=== PATIENT | male | born 1995 | race African-American/Black ===

== ENCOUNTER 2021-03-24 19:33 | Inpatient (IN) | payer OTHER ==
[~2021-03-24] VITALS: Ht 185.4 cm; Wt 74.8 kg
--- NOTE | 2021-03-24 20:09 | NUR ---
SE RECIBE PACIENTE EN AMBULANCIA, PARAMEDICOS REFIERE LO ENCONTRARON INCONCIENTE EN LA PLAYA Y OFRECIERON PROMEROS AUXILIOS Y EL MISMO RESPONDIO. SE COLOCA EN CAMA #1 AREA DE ICU #2, SE CONECTA AMONITOR CARDIORESPIRATORIO Y SATUROMETRO.PACIENTE CON DOS CANALIZACIONES DE AMBULANCIA ANGIOS #16 Y #18 EN BRAZO IZQ AMBOS PATENTES, AREA ADRIANE DE EDEMA Y/O ERITEMA.PACIENTE CON.9NSS, SE ADMINISTRAN MEDICAMENTOS SINDY ORDEN MEDICA CON MEDIDAS ASEPTICAS CORRESPON- DIENTES.SE GRADY MUESTRAS Y SE ENVIAN A LABORATORIO, SE UTILIZAN MEDIDAS ASEPTICAS CORRESPONDIENTES.SE MIDEN Y DOCUMENTAN S/V.PACIENTE CON NON REBREADING SATURANDO 92%.PACIENTE ALERTA Y ORIENTADO AL MOMENTO. BARANDAS ELEVADAS POR LOCKE SEGURIDAD. SE CONTINUA MONITOREANDO POR CAMBIOS SIGNIFICATIVOS.
== END 2021-03-27 12:46 | disposition home or self-care (01) | DRG 179 ==
LOC: ER 19:33 → ICU-2 22:27 → MEDJ 03-25 17:12
PROVIDERS: ADMIT Internal Medicine; ATTEND Internal Medicine
PROC: CB2YYZZ Tomographic (Tomo) Nuclear Medicine Imaging of Respiratory System using Other Radionuclide (ICD-10-PCS; principal; 2021-03-25)
PROC: 4A12X4Z Monitoring of Cardiac Electrical Activity, External Approach (ICD-10-PCS; 2021-03-25)
PROC: 4A033R1 Measurement of Arterial Saturation, Peripheral, Percutaneous Approach (ICD-10-PCS; 2021-03-26)
DX: J69.0 Pneumonitis due to inhalation of food and vomit (principal); Z20.822 Contact with and (suspected) exposure to COVID-19